=== PATIENT | male | born 1955 | race Caucasian/White ===

== ENCOUNTER → 2020-06-08 | Outpatient (CLI) | payer OTHER ==
[~2020-06-08] MED LIST: ACHD5005 PO; ALBU17AE3 IH; ASP81CT PO; ASP81TEC PO; ASPI-587 PO; ASPI-892 PO; ATOR40TA PO; ATOR80TA76 PO; ATRV10T PO; AZIT-21 PO; Atorvastatin Calcium PO; BENZ200C25 PO; CLOP75TA28 PO; CLOP75TA69 PO; CLPD75T PO; CYCL10TA9 PO; FLDR.1T; FLDR.1T PO; HYDR-3816 PO; HYDR50TA76 PO; LEVO500T69 PO; LORA1TAB PO; METH4TAB PO; NAPR-243 PO; NAPR-689 PO; NTR.4SL SL; OMEP20CA12 PO; PNT40TEC PO; PRD20T PO; PT DENIES HOME MEDS; RT-ALBUINH IH; RT-COMBINH IH; SIMV20TA3 PO; TIOT18CA IH; TIOT18CA2 IH; TRAM50TA2 PO; [UNRECOGNIZED DRUG - REMARK]
--- NOTE | 2020-06-08 15:41 | Diagnostic Imaging Report ---
PROCEDURE: MRI left joint lower extremity without contrast. TECHNIQUE: Multiplanar, multisequence non contrast-enhanced MRI of the left lower extremity was accomplished. INDICATION: Fall off a ladder in October with left ankle and foot pain. COMPARISON: Radiographs from 11/13/2019 from outside facility. FINDINGS: There is a nondisplaced comminuted fracture of the posterior left calcaneus with a transverse component across the plantar tubercle, and a longitudinal component extending up toward the subtalar joint and the posterior facet. There is mild associated bone marrow edema. The anterior posterior syndesmotic ligaments are intact. The anterior and posterior talofibular ligaments are intact. The calcaneofibular ligament is intact. The deep fibers of the deltoid ligament are intact. The spring ligament appears intact. The sinus tarsi demonstrates normal fat signal. The plantar fascia attaches at the fracture site, but appears to be intact. The Achilles tendon is intact. The peroneal tendons are intact. The flexor and extensor tendons are intact. There is no muscular atrophy. No soft tissue fluid collections or masses are seen. IMPRESSION: 1. Nondisplaced comminuted fracture of the posterior plantar left calcaneus with extension into the subtalar joint. Dictated by: Dictated on workstation # [id number]
== END ==
LOC: RAD 13:41
PROVIDERS: ATTEND Podiatrist Foot & Ankle Surgery
DX: S92.002A Unspecified fracture of left calcaneus, initial encounter for closed fracture (principal); M72.2 Plantar fascial fibromatosis; G57.52 Tarsal tunnel syndrome, left lower limb; M76.62 Achilles tendinitis, left leg; W11.XXXA Fall on and from ladder, initial encounter
CPT/HCPCS: 73721